=== PATIENT | female | born 1980 | race Caucasian/White ===

== ENCOUNTER 2017-09-19 11:02 | Emergency (ER) | payer OTHER ==
[~2017-09-19] VITALS: Ht 170.2 cm; Wt 72.6 kg
--- NOTE | 2017-09-19 11:22 | ED CARDIAC/CP/PALPITATIONS ---
History of Present Illness General Chief Complaint: Chest Pain Stated Complaint: CHEST PAIN/SHOULDER PAIN Source: patient Exam Limitations: no limitations Allergies Coded Allergies: NO KNOWN ALLERGIES (09/27/11) Reconcile Medications Amoxicillin/Potassium Clav (Augmentin 875-125 Tablet) 875 MG-125 MG TABLET 1 TAB PO BID ANTIBIOTIC, INFECTION (Reported) Meclizine HCl 25 MG TABLET 2 TAB PO TID VERTIGO (Reported) Triage Note: PAST FEW DAYS FEELS A FLUTTER OR PALPITATION IN CHEST AND PAIN IN LEFT SHOULDER BLADE. STATES "NOT MUCH SOB" SEEN FOR VERTIGO OVER THE WEEKEND. GIVEN AUGMENTIN AND MECLIZINE. ON AND OFF SINCE FRIDAY Triage Nurses Notes Reviewed? yes Onset: Abrupt Duration: day(s): (5 ) Timing: recent history Quality/Severity: moderate Location: central Radiation: no radiation Activities at Onset: none : No Patient currently breastfeeds: No HPI: 36-year-old female comes into emergency room with evaluation of some intermittent left-sided chest pain/rib pain that radiates to her left shoulder. She denies any shortness of breath. She reports some intermittent palpitations with feeling like her heart is racing fast. She denies any syncopal episodes. The symptoms been going on and off since this past Friday about 5 days ago. She was seen in the walk-in clinic and diagnosed with sinusitis that she was having some vertigo symptoms in the room spinning around. She was put on Augmentin and also placed on meclizine. Denies any improvement in symptoms. She comes in for further evaluation. (Jace Huang) Vital Signs & Intake/Output Vital Signs & Intake/Output Vital Signs Date Time Temp Pulse Resp B/P B/P Pulse O2 O2 Flow FiO2 Mean Ox Delivery Rate 09/19 1255 97.1 85 18 120/70 99 09/19 1111 97.8 112 20 124/84 100 Room Air (Timothy Delvalle MD) Past History Travel History Traveled to [place] past 21 day No Medical History Any Pertinent Medical History? none Surgical History Surgical History: none Psychosocial History What is your primary language Azeri Tobacco Use: Current Daily Use Daily Tobacco Use Amount/Type: => 5 Cigarettes daily ETOH Use: occasional use Illicit Drug Use: denies illicit drug use Family History Hx Contributory? No (Jace Huang) Review of Systems Review of Systems Constitutional: Reports: no symptoms. EENTM: Reports: no symptoms. Respiratory: Reports: see HPI. Cardiovascular: Reports: see HPI. GI: Reports: no symptoms. Genitourinary: Reports: no symptoms. Musculoskeletal: Reports: no symptoms. Skin: Reports: no symptoms. Neurological/Psychological: Reports: no symptoms. Hematologic/Endocrine: Reports: no symptoms. Immunologic/Allergic: Reports: no symptoms. All Other Systems: Reviewed and Negative (Jace Huang) Physical Exam Physical Exam General Appearance: well developed/nourished, no apparent distress, alert, awake Head: atraumatic, normal appearance Eyes: Bilateral: normal appearance, EOMI. Ears, Nose, Throat: normal ENT inspection, hearing grossly normal Neck: normal inspection Respiratory: normal breath sounds, no respiratory distress Cardiovascular: regular rate/rhythm Back: normal inspection Extremities: normal inspection, no edema Neurologic/Psych: awake, alert, oriented x 3, normal gait Skin: intact, normal color Core Measures ACS in differential dx? Yes CVA/TIA Diagnosis No Sepsis Present: No Sepsis Focused Exam Completed? No (Jace Huang) Progress Differential Diagnosis: AMI, atrial fibrillation, costochondritis, hyperthyroid, hyperventilation, musculoskeletal pain, pericarditis, pneumothorax, pulmonary embolism, PVCs/PACs, respiratory failure, unstable angina, V-fib/V-Tach Diagnostic Imaging: Viewed by Me: Radiology Read. Discussed w/RAD: Radiology Read. Radiology Impression: PATIENT: DHEERAJ MEYER PRESENT AGE: 36 PATIENT ACCOUNT NO: [id number] : 82 LOCATION: [facility] ORDERING PHYSICIAN: Jace SHAH SERVICE DATE: 09/19/17 EXAM TYPE : RAD - XRY-CHEST XRAY, TWO VIEWS EXAMINATION: XR CHEST CLINICAL INFORMATION: 26 -year-old female with chest pain. COMPARISON: CT of the chest, abdomen, and pelvis on 09/28/2011. TECHNIQUE: PA and lateral erect views of the chest. FINDINGS: The heart remains normal in size. Pulmonary vascularity is normal. Lungs are symmetrically aerated and clear showing no evidence of acute pulmonary parenchymal or pleural disease. The regional skeletal structures are normal. IMPRESSION: Unremarkable examination. DICTATED BY: Markus Rivera MD DATE/ TIME DICTATED:09/19/171246 VOCAL ARTIST:ADILIA DATE/TIME TRANSCRIBED: 09/19/171246 CONFIDENTIAL, DO NOT COPY WITHOUT APPROPRIATE AUTHORIZATION. < Electronically signed in Other Vendor System> SIGNED BY: Markus Rivera MD 09/19/17 1254 Initial ED EKG: normal sinus rhythm, rate (85) (Renard SHAH,Jace) Plan of Care: Orders Procedure Date/time Status Add-on Test (ER Only) 09/19 1255 Active THYROID STIMULATING HORMONE 09/19 1125 Complete Telemetry/Cook Manager 09/19 1112 Active TROPONIN LEVEL 09/19 1112 Complete HUMAN BETA HCG SCREEN 09/19 1112 Complete D-DIMER 09/19 1112 Complete COMPREHENSIVE METABOLIC PANEL 09/19 1112 Complete CBC WITHOUT DIFFERENTIAL 09/19 1112 Complete EKG 09/19 1103 Active Laboratory Tests 09/19/17 1125: Anion Gap 11, Estimated GFR > 60, BUN/Creatinine Ratio 34.0 H, Glucose 97, Calcium 9.8, Total Bilirubin 0.4, AST 17, ALT 17, Alkaline Phosphatase 61, Troponin I < 0.01, Total Protein 7.9, Albumin 4.6, Globulin 3.3, Albumin/ Globulin Ratio 1.4, TSH 1.350, Total Beta HCG NEGATIVE, D-Dimer High Sensitivty < 200, CBC w Diff NO MAN DIFF REQ, RBC 4.69, MCV 85.8, MCH 29.2, MCHC 34.1, RDW 13.0, MPV 9.5, Gran % 64.0, Lymphocytes % 28.5, Monocytes % 4.9, Eosinophils % 2.0, Basophils % 0.6, Absolute Granulocytes 4.2, Absolute Lymphocytes 1.9, Absolute Monocytes 0.3, Absolute Eosinophils 0.1, Absolute Basophils 0 (Adelia GARAY,Timothy Olmstead) Departure Departure Disposition: HOME OR SELF CARE Condition: Stable Clinical Impression Primary Impression: Atypical chest pain Referrals: Manish GARAY,Jeffry Cadena Departure Forms: Customer Survey General Discharge Information Comments 09/19/2017 1:58:47 PM patient clinically looks well. Patient is no apparent chest. Patient is nontoxic-appearing. Pain is somewhat reproducible in the left side/back. D- dimer negative. No suspicion for pulmonary embolism. EKG within normal limits. Troponin negative. Case discussed with Dr. Delvalle. Patient should follow-up for outpatient Holter monitor if symptoms of palpitations persist. She does not appear to be any distress on discharge. She understands and agrees with plan of care. Pain is more likely musculoskeletal in nature. (Jace Huang) Departure Additional Instructions: Follow-up with your PCP. Have outpatient Holter monitor done a symptoms persist. Return if any worsening pain, syncopal episodes, or any other concerns worsening symptoms. If you do not currently have a primary care physician then please contact the [facility] practice at the following phone number: . Please go over all results of today's visit with your primary care doctor. Contact your primary care doctor to let them know you were here in the emergency room. There may be nonspecific findings which may not be related to your visit today here in the emergency room but may require further evaluation and chronic monitoring by your primary care doctor. If you had a laceration today the chance of foreign body always remains. You should follow-up with your primary care doctor for recheck in 3-5 days for a wound check. If you had an x-ray done there is a chance that a fracture could have been missed on initial read and you should follow-up with your primary care doctor for repeat x-rays if symptoms persist. If your blood pressure was elevated here in the emergency room please have rechecked by [facility] primary care doctor within the next 48. If you were prescribed a narcotic here in the emergency room or any type of controlled substances you're not allowed to drive while taking this medication or operate any type of heavy machinery. Narcotics can make you feel lightheaded dizziness nausea and can cause constipation. You may need to pickle maker a stool softener. Thank you for choosing [facility] emergency room. Please return to the emergency room immediately if you have any other concerns worsening of symptoms. PA/LOCKET MAKER Co-Sign Statement Statement: ED Attending supervision documentation- [] I saw and evaluated the patient. I have also reviewed all the pertinent lab results and diagnostic results. I agree with the findings and the plan of care as documented in the PA's/LOCKET MAKER's documentation. [X] I have reviewed the ED Record and agree with the PA's/LOCKET MAKER's documentation. [] Additions or exceptions (if any) to the PAs/LOCKET MAKER's note and plan are summarized below: [] (Adelia GARAY,Timothy Olmstead) Critical Care Note Critical Care Note Critical Care Time: non-applicable (Renard SHAH,Jace)
[2017-09-19 11:47] LABS: ABSOLUTE BASOPHIL COUNT 0 /CUMM (0.0-0.2); ABSOLUTE EOSINOPHIL COUNT 0.1 /CUMM (0.0-0.7); ABSOLUTE GRANULOCYTE CT 4.2 /CUMM (1.4-6.5); ABSOLUTE LYMPH COUNT 1.9 /CUMM (1.2-3.4); ABSOLUTE MONOCYTE COUNT 0.3 /CUMM (0.10-0.60); BASOPHIL % 0.6 % (0.0-2.0); HEMATOCRIT 40.2 % (37-47); MEAN CORPUSCULAR HGB 29.2 PG (27.0-31.0); MEAN CORPUSCULAR HGB CONC 34.1 G/DL (33.0-37.0); MEAN CORPUSCULAR VOLUME 85.8 FL (81.0-99.0); MEAN PLATELET VOLUME 9.5 FL (7.4-10.4); PLATELET COUNT 194 /CUMM (130-400); RED BLOOD CELL CT 4.69 /CUMM (4.20-5.40); WHITE BLOOD CELL COUNT 6.6 /CUMM (4.8-10.8)
[2017-09-19] MEDS ORDERED: AUGMENTIN 875-1 EACH PO (12:28)
[2017-09-19] MEDS ORDERED: MECLIZINE HCL25 MG PO (12:29)
--- NOTE | 2017-09-19 12:54 | RADIOLOGY REPORT ---
EXAMINATION: XR CHEST CLINICAL INFORMATION: 26-year-old female with chest pain. COMPARISON: CT of the chest, abdomen, and pelvis on 09/28/2011. TECHNIQUE: PA and lateral erect views of the chest. FINDINGS: The heart remains normal in size. Pulmonary vascularity is normal. Lungs are symmetrically aerated and clear showing no evidence of acute pulmonary parenchymal or pleural disease. The regional skeletal structures are normal. IMPRESSION: Unremarkable examination.
[2017-09-19 12:55] VITALS: BP 120/70
== END 2017-09-19 13:17 ==
LOC: ERH 11:02
PROVIDERS: Physician Assistant Medical
DX: R07.89 Other chest pain (principal)
CPT/HCPCS: 71046; 93005; 93010